=== PATIENT | female | born 1940 | race Caucasian/White ===

== ENCOUNTER 2017-09-25 20:53 | Emergency (ER) | payer MEDICARE, OTHER ==
[2017-09-25 21:26] VITALS: PULSE 60; O2SAT 98
[2017-09-25] MEDS ORDERED: XYLOCAINE 1% HCL 20 ML MDV IJ ONE (21:33)
[2017-09-25] MEDS ORDERED: Adacel Vial IM ONE ×2 (21:33→21:59)
--- NOTE | 2017-09-25 21:43 | ERPHSYRPT ---
- History of Present Illness Time Seen by Provider: 09/25/17 21:33 Source: patient Exam Limitations: no limitations Patient Subjective Stated Complaint: pt states she fell and hit her head and cut her lt leg. Triage Nursing Assessment: pt alert and oriented, asnwers questions approp. pt ambulate from wheelchair to stretcehr with assist of 2. uynsteady gait noted. respirations nonlabored with lungs cta. pupils equal and reactive. strength upper and lower bilat wnl. laceration to lt lower leg, bleeding controlled at this time. Physician History: Pt tripped and fell at home about one hour ago, hit her head, denies LOC, nausea , other injury, than sustaining a laceration to her right lower leg. She has full recollection what happened, her Tetanus is unknown, she denies other injury or complaints. She states, her INR was checked yesterday, it was 2.4. Occurred: just prior to arrival Reason for Fall: lost balance Injuries/Pain Location: head, lower extremity Loss of Consciousness: no loss of consciousness Quality: aching Severity of Pain-Max: mild Severity of Pain-Current: mild Modifying Factors: Improves With: nothing Associated Symptoms (Fall): denies symptoms Allergies/Adverse Reactions: flu virus vaccine tv 2014- (19 yr [From Flublok [id number] (PF)] Allergy ( Verified 04/28/16 17:03) levofloxacin [From Levaquin] Allergy (Verified 04/28/16 17:03) Sulfa (Sulfonamide Antibiotics) Allergy (Verified 04/28/16 17:03) Home Medications: Carvedilol [Coreg] 3.125 mg PO BID 04/28/16 [History] Cyanocobalamin (Vitamin B-12) [Vitamin B12] 5,000 mcg PO DAILY 04/28/16 [History ] Ergocalciferol (Vitamin D2) [Vitamin D] 1 ea PO WEEKLY 04/28/16 [History] Folic Acid 1 mg PO DAILY 04/28/16 [History] Hydroxychloroquine Sulfate [Plaquenil] 200 mg PO BID 04/28/16 [History] Lisinopril [Zestril] 2.5 mg PO HS 04/28/16 [History] Methotrexate Sodium [Methotrexate] 2.5 mg PO WEEKLY 04/28/16 [History] Simvastatin 40 mg [Zocor 40 mg] 40 mg PO HS 04/28/16 [History] Warfarin Sodium 10 mg [Coumadin 10 MG] 10 mg PO HS 04/28/16 [History] Hx Tetanus, Diphtheria Vaccination/Date Given: No (unsure) Hx Influenza Vaccination/Date Given: No Hx Pneumococcal Vaccination/Date Given: No Immunizations Up to Date: No - Review of Systems Constitutional: No Symptoms Skin: Other (laceration to right lower leg) All Other Systems: Reviewed and Negative - Past Medical History Pertinent Past Medical History: Yes Cardiac History: Aneurysm, Other Respiratory History: Other Musculoskeletal History: Fractures, Rheumatoid Arthritis Female Reproductive Disorders: Breast Cancer Other Medical History: pacer - Past Surgical History Past Surgical History: Yes Cardiac: Pacemaker, Valve Replacement Musculoskeletal: Orthopedic Surgery, Other Female Surgical History: Mastectomy Other Surgical History: bilat knees, lt hip replacement x2 - Social History Smoking Status: Never smoker Exposure to second hand smoke: No Drug Use: none Patient Lives Alone: No - Nursing Vital Signs Nursing Vital Signs: Initial Vital Signs Temperature 97.3 F 09/25/17 21:13 Pulse Rate 60 09/25/17 21:13 Respiratory Rate 18 09/25/17 21:13 Blood Pressure 145/64 09/25/17 21:13 O2 Sat by Pulse Oximetry 98 09/25/17 21:13 Pain Scale Pain Intensity 2 - Star Coma Score Best Eye Response (Kennedi): (4) open spontaneously Best Verbal Response (Kennedi): (5) oriented Best Motor Response (Kennedi): (6) obeys commands Kennedi Total: 15 - Physical Exam General Appearance: no apparent distress Head Injury: no evidence of injury Eye Exam: PERRL/EOMI, eyes nml inspection ENT Exam: airway nml, nml ext.inspection Neck Exam: supple, trachea midline, normal alignment, normal inspection Respiratory/Chest Exam: normal breath sounds, No chest tenderness, No respiratory distress, No crepitus, No decreased breath sounds, No rales, No rhonchi Cardiovascular Exam: normal heart sounds, regular rate/rhythm, normal peripheral pulses, No murmur, No edema, No JVD Gastrointestinal Exam: soft, normal bowel sounds, No tenderness, No distention, No ecchymosis Back Exam: normal inspection, No CVA tenderness, No vertebral tenderness Extremity Exam: other (right lower walker: 5-6 cm longitudinal skin tear, no severe bleeding or large hematoma, good distal pulses and sensation.) Neurologic Exam: alert, oriented x 3, normal mood/affect Skin Exam: normal color, warm, dry SpO2 Interpretation: normal SpO2: 98 Oxygen Delivery: Room Air Procedures - Laceration/Wound Repair Ankle Wound Location: Right Wound Length (cm): 5 Wound's Depth, Shape: into muscle, linear Wound Explored: clean Irrigated: Yes Hibiclens Prep: No Anesthesia: 1% Lidocaine Volume Anesthetic (ccs): 8 Wound Repaired With: sutures Suture Size/Type: 3-0, prolene Number of Sutures: 4 Sterile Dressing Applied?: Yes Splint Applied?: No Sling Applied?: No - Radiology Exams Lower Leg X-ray Interpretation: Interpreted by me, Negative - CT Exams Head CT Interpretation: Negative Ordered Tests: Active Orders 24 hr Category Date Time Status Prepare for Sutures STAT Care 09/25/17 21:33 Active Sutures STAT Care 09/25/17 21:34 Active HEAD WITHOUT CONTRAST [CT] Stat Exams 09/25/17 21:37 Taken LOWER LEG Stat Exams 09/25/17 22:33 Taken LOWER LEG Stat Exams 09/25/17 22:34 Taken Medication Summary Discontinued Medications Generic Name Dose Route Start Last Admin Trade Name Freq PRN Reason Stop Dose Admin Cephalexin HCl 500 mg 09/25/17 22:38 Keflex 500 Mg PO 09/25/17 22:39 STAT ONE Diphtheria/Tetanus/Acell Pertussis 0.5 ml 09/25/17 21:33 09/25/17 22:21 Adacel Vial IM 09/25/17 21:34 0.5 ml .ONCE ONE Administration Diphtheria/Tetanus/Acell Pertussis Confirm 09/25/17 21:59 Adacel Vial Administered 09/25/17 22:00 Dose 0.5 ml IM .STK-MED ONE Lidocaine HCl 5 ml 09/25/17 21:33 09/25/17 22:23 Xylocaine 1% Hcl 20 Ml Mdv IJ 09/25/17 21:34 5 ml STAT ONE Administration Lidocaine HCl Confirm 09/25/17 21:58 Xylocaine 1% Hcl 20 Ml Mdv Administered 09/25/17 21:59 Dose 20 ml .ROUTE .STK-MED ONE - Progress Progress: improved Progress Note: 09/25/17 22:42 Pt and were informed about test results, she has been comfortable, denies severe pain or distress, advised to rest x 2-3 days with elevated leg, Keflex started, also to return in 2-3 days, to recheck wound, or if severe pain , redness, drainage or fever> 102 F, removal of the sutures after 2 weeks! - Departure Time of Disposition: 22:43 Departure Disposition: Home Clinical Impression: Head contusion Qualifiers: Encounter type: initial encounter Contusion of head detail: scalp Qualified Code(s): S00.03XA - Contusion of scalp, initial encounter Leg laceration Qualifiers: Encounter type: initial encounter Laterality: right Qualified Code(s): S81.811A - Laceration without foreign body, right lower leg, initial encounter Clinical Impression: (Ruled Out): Skin laceration Condition: Stable Critical Care Time: No Referrals: BO SAMANIEGO MD [Primary Care Provider] - Additional Instructions: Rest x 2-3 days with elevated leg, return after 2-3 days for wound check, or if severe pain, redness, discharge or fever> 102 F, removal of the sutures after 2 weeks!
[2017-09-25] MEDS ORDERED: XYLOCAINE 1% HCL 20 ML MDV ONE (21:58)
[2017-09-25] MEDS ORDERED: KEFLEX 500 MG PO ONE (22:38)
[2017-09-25] MEDS ORDERED: KEFLEX 500 MG ONE (22:48)
[2017-09-25 23:12] VITALS: BP 142/71
--- NOTE | 2017-09-26 08:44 | XRAY ---
Indication: Pain following fall. Multiple contiguous axial images obtained through the head without contrast. Comparison: None Age-appropriate global atrophy and mild periventricular degenerative micro-ischemia. No acute intracranial hemorrhage, abnormal extra-axial fluid collection, or mass effect. Fourth ventricle is midline without hydrocephalus. Bony calvarium intact. Visualized paranasal sinuses and mastoid air cells are clear. Impression: Nonacute senile brain. CT DI 50.38
--- NOTE | 2017-09-26 08:44 | XRAY ---
Indication: Pain following fall. Comparison: None 2 views of the left lower leg demonstrates osteopenia, previous total knee arthroplasty, and scattered vascular calcifications. No other bony, articular, or soft tissue abnormalities.
--- NOTE | 2017-09-26 08:46 | XRAY ---
Indication: Pain following fall. Comparison: None 2 views of the right lower leg demonstrates osteopenia, previous total knee arthroplasty, and scattered vascular calcifications. No other bony, articular, or soft tissue abnormalities.
== END 2017-09-25 23:10 | disposition home or self-care (01) ==
LOC: ED 20:53
PROC: 0HQMXZZ Repair Right Foot Skin, External Approach (ICD-10-PCS; principal; 2017-09-25)
DX: S00.03XA Contusion of scalp, initial encounter (principal); S81.811A Laceration without foreign body, right lower leg, initial encounter; W01.0XXA Fall on same level from slipping, tripping and stumbling without subsequent striking against object, initial encounter; Z79.899 Other long term (current) drug therapy
CPT/HCPCS: 12002; 70450; 73590; 90471; 90715; 96372; 99284; A9270-GY